=== PATIENT | female | born 1970 | race Caucasian/White ===

== ENCOUNTER 2018-05-10 05:33 | Day surgery (SDC) | payer OTHER ==
--- NOTE | 2018-05-09 07:57 | P.HPOB ---
History of Present Illness H&P Date: 05/09/18 Chief Complaint: Menorrhagia This patient is a pleasant 48 yr female with persistent menorrhagia. She was referred to me by Dr. Kang due worsening menorrhagia and secondary anemia. She has episodes of bleeding sometimes >10 days and has required iron for the resultant anemia. Pelvic ultrasound was normal. She is requesting endometrial ablation for treatment. Review of Systems Genitourinary: Reports as per HPI, Reports menorrhagia Menstruation: Reports as per HPI Past Medical History Past Medical History: Asthma, GERD/Reflux Additional Past Medical History / Comment(s): HEAVY PERIODS, ANEMIA History of Any Multi-Drug Resistant Organisms: None Reported Past Surgical History: Section Additional Past Surgical History / Comment(s): WISDOM TEETH Past Anesthesia/Blood Transfusion Reactions: No Reported Reaction Past Psychological History: No Psychological Hx Reported Smoking Status: Current every day smoker Past Alcohol Use History: None Reported Past Drug Use History: None Reported - Past Family History Father Family Medical History: Deep Vein Thrombosis (DVT) Medications and Allergies Home Medications Medication Instructions Recorded Confirmed Type Albuterol Sulfate [Proair Hfa] 1 - 2 puff INHALATION Q6HR PRN 05/04/18 05/04/18 History Ferrous Sulfate [Iron] 325 mg PO DAILY 05/04/18 05/04/18 History Montelukast [Singulair] 10 mg PO DAILY 05/04/18 05/04/18 History Allergies Allergy/AdvReac Type Severity Reaction Status Date / Time Sulfa (Sulfonamide Allergy Nausea/DIZZ Verified 05/04/18 11:11 Antibiotics) Y/CHILLS Exam - OBG Physical Exam Abdomen: bowel sounds normal, no diffuse tenderness, no bruit present, no guarding noted, no hepatomegaly, no splenomegaly, no mass Vulva: both: normal Vagina: normal moisture, no discharge Cervix: no lesion, no discharge Uterus: normal size, normal contour Adnexa: both: normal Results Transvaginal ultrasound on April 16 shows a normal retroverted uterus and ovaries. Assessment and Plan Assessment: This is a pleasant 48 yr old female with persistent menorrhagia requesting endometrial ablation for treatment. Plan is hysteroscopy, D&C and Novasure endometrial ablation. We have discussed this surgery and risks: infection, bleeding, possible uterine perforation and /or thermal injury. All of the patients questions were answered and a written consent obtained. (1) Menorrhagia Status: Chronic Code(s): N92.0 - EXCESSIVE AND FREQUENT MENSTRUATION WITH REGULAR CYCLE SNOMED Code(s): 599429569
[~2018-05-10 05:33] MED LIST: Pre Op ABX Message 1 EACH MISC MISCELLANE ONE
[2018-05-10] MEDS ORDERED: MIDAZOLAM 2 MG/2 ML VIAL IV PRN (05:36)
[2018-05-10] MEDS ORDERED: DEXAMETHASONE SOD PHOSPHATE 10 MG/ML 1 ML VIAL IV ONE (05:36)
[2018-05-10] MEDS ORDERED: fentaNYL (PF) 50 MCG/ML 2 ML AMP IV PRN (05:36)
[2018-05-10] MEDS ORDERED: ONDANSETRON 4 MG/2 ML VIAL IVP ONE (05:36)
[2018-05-10] MEDS ORDERED: SCOPOLAMINE 1.5MG/72HR PATCH TRANSDERM ONE (05:36)
[2018-05-10 06:21] VITALS: RESP 16
[2018-05-10] MEDS: LACTATED RINGERS 1,000 ML IV SCH ×2 (06:28→08:30)
[2018-05-10] MEDS ORDERED: LIDOCAINE 1% 20 ML VIAL (10MG/ML) FOR IV START INTRADERMA ONE (06:28)
[2018-05-10] MEDS ORDERED: PROPOFOL 10 MG/ML 20 ML VIAL IV ONE (07:26)
[2018-05-10] MEDS ORDERED: LIDOCAINE 1% INJ 10MG/ML (20 ML MDV) ONE (07:26)
[2018-05-10] MEDS ORDERED: MIDAZOLAM 2 MG/2 ML VIAL ONE (07:26)
[2018-05-10] MEDS ORDERED: SUCCINYLCHOLINE CHLORIDE 100 MG/5 ML SYR IV ONE (07:26)
[2018-05-10] MEDS ORDERED: KETOROLAC 30 MG/ML 1 ML VIAL ONE (07:26)
[2018-05-10] MEDS ORDERED: fentaNYL (PF) 50 MCG/ML 2 ML AMP ONE (07:26)
--- NOTE | 2018-05-10 08:04 | P.OP ---
Date of Procedure: 05/10/18 Preoperative Diagnosis: Menorrhagia Postoperative Diagnosis: Same Procedure(s) Performed: #1: Hysteroscopy. #2: Dilation and curettage. #3: NovaSure endometrial ablation. Anesthesia: BRENTONA Surgeon: Emigdio Marcelo Estimated Blood Loss (ml): 5 Urine output (ml): 75 Pathology: other (Uterine curettings) Condition: stable Disposition: PACU Indications for Procedure: Please see dictated H&P for intimate details of this patient's admission. Brief summary this is a pleasant 48-year-old female with long-standing menorrhagia who is requesting endometrial ablation for treatment. Patient understands this surgery and risks including risks of infection, bleeding, possible uterine perforation, and/or thermal injury. All the patient's questions been answered and a written consent obtained. Operative Findings: This patient had some endometrial thickening anteriorly but otherwise normal- appearing endometrial cavity. Description of Procedure: This patient is taken to the operating room where she is laid in the supine position. She subsequently undergoes general endotracheal anesthesia without incident. With an adequate level of anesthesia she's placed in dorsal lithotomy position. She has a vaginal perineal prep and drape. Examination under anesthesia shows the uterus to be retroverted of normal size. I placed a weighted speculum posterior vagina and grabbed the anterior lip of cervix with an Allis clamp. The bladder is drained for 75 mL of clear urine. Uterus is then sounded to 8.5 cm retroverted. I dilate the cervix gently to allow the hysteroscope into the uterine cavity. Using saline solution hysteroscopy is performed and the cavity length was calculated to be 6 cm. There is some thickening anteriorly. Otherwise uterine cavity appears normal. Hysteroscope was then removed. Cervix is dilated more to allow a small curette into the uterine cavity. I do placed the polyp forceps into the uterine cavity and small pieces of tissue removed. At that point a gentle but thorough 4 quadrant curettage is done for adequate sampling. This done the NovaSure device is then opened. Appears to be intact. It is set at a length of 6.0 cm and seated in place and opens to a width of 4.5 cm. It passes the cavity integrity test and then is enabled at 149 W setting for 85 seconds. NovaSure device is then removed. Hysteroscopy is then performed and the uterine cavity appears to be ablated up to the endocervix. At this point the procedure is then ended. The Allis clamp and weighted speculum removed. All counts are correct 3. There are no complications. Patient is awakened from anesthesia and taken to recovery room in satisfactory condition.
[2018-05-10 08:10] VITALS: TEMP 97.7
[2018-05-10 09:00] VITALS: BP 136/81; PULSE 68
== END 2018-05-10 09:33 | disposition home or self-care (01) ==
LOC: OR 05:33
PROVIDERS: ATTEND Obstetrics & Gynecology
DX: N84.0 Polyp of corpus uteri (principal); J44.9 Chronic obstructive pulmonary disease, unspecified; K21.9 Gastro-esophageal reflux disease without esophagitis; D64.9 Anemia, unspecified; F17.200 Nicotine dependence, unspecified, uncomplicated; Z79.899 Other long term (current) drug therapy; Z79.1 Long term (current) use of non-steroidal anti-inflammatories (NSAID); Z88.2 Allergy status to sulfonamides
CPT/HCPCS: 81025; 88305; 58563; J2250; J1100; J2405; J2001; J3010; J1885; J0330; J2704

== ENCOUNTER → 2018-05-17 | Outpatient (CLI) | payer OTHER ==
--- NOTE | 2018-05-17 14:54 | MM ---
Reason for exam: screening (asymptomatic). History: Family history of breast cancer in maternal grandmother at age 70 and breast cancer in maternal aunt at age 60. Took hormonal contraceptives for 10 years. Physical Findings: A clinical breast exam by your physician is recommended on an annual basis and results should be correlated with mammographic findings. MG Screening Mammo w CAD Bilateral CC and MLO view(s) were taken. No prior studies available for comparison. The breast tissue is heterogeneously dense. This may lower the sensitivity of mammography. Finding: There is a 5 mm circumscribed mass in the inner quadrant, middle position of the left breast. ASSESSMENT: Incomplete: need additional imaging evaluation, BI-RAD 0 RECOMMENDATION: Special view mammogram and ultrasound of the left breast. [facility] will attempt to contact patient to return for supplemental views and ultrasound.
== END | disposition home or self-care (01) ==
LOC: RADMAMWWP 07:43
PROVIDERS: ATTEND Obstetrics & Gynecology
DX: Z12.31 Encounter for screening mammogram for malignant neoplasm of breast (principal)
CPT/HCPCS: 77067

== ENCOUNTER → 2018-05-31 | Outpatient (CLI) | payer OTHER ==
--- NOTE | 2018-05-31 12:30 | MM ---
Reason for exam: additional evaluation requested from abnormal screening. Last mammogram was performed less than 1 month ago. History: Family history of breast cancer in maternal grandmother at age 70 and breast cancer in maternal aunt at age 60. Took hormonal contraceptives for 10 years. Physical Findings: A clinical breast exam by your physician is recommended on an annual basis and results should be correlated with mammographic findings. MG Work Up Mamm w CAD LT Spot compression CC, spot compression MLO, and ML view(s) were taken of the left breast. Prior study comparison: May 17, 2018, bilateral MG screening mammo w CAD. The breast tissue is heterogeneously dense. This may lower the sensitivity of mammography. Two areas of nodularity became less defined, centrally and laterally. 6 month follow up recommended. These results were verbally communicated with the patient and result sheet given to the patient on 05/31/18. ASSESSMENT: Probably benign, BI-RAD 3 RECOMMENDATION: Follow-up diagnostic mammogram of the left breast in 6 months.
== END | disposition home or self-care (01) ==
LOC: RADMAMWWP 08:42
PROVIDERS: ATTEND Obstetrics & Gynecology
DX: R92.8 Other abnormal and inconclusive findings on diagnostic imaging of breast (principal)
CPT/HCPCS: 77065

== ENCOUNTER → 2020-04-02 | Outpatient (CLI) | payer OTHER ==
--- NOTE | 2020-04-03 15:03 | MM ---
Reason for exam: screening (asymptomatic). Last mammogram was performed 1 year and 10 months ago. History: Family history of breast cancer in maternal grandmother at age 70 and breast cancer in maternal aunt at age 60. Took hormonal contraceptives for 10 years. Physical Findings: A clinical breast exam by your physician is recommended on an annual basis and results should be correlated with mammographic findings. MG Screening Mammo w CAD Bilateral CC and MLO view(s) were taken. Prior study comparison: May 31, 2018, left breast MG work up mamm w CAD LT. May 17, 2018, bilateral MG screening mammo w CAD. There are scattered fibroglandular densities. There is chronic nodularity in the left breast. No significant changes when compared with prior studies. ASSESSMENT: Benign, BI-RAD 2 RECOMMENDATION: Routine screening mammogram of both breasts in 1 year.
== END | disposition home or self-care (01) ==
LOC: RADMAMWWP 07:48
PROVIDERS: ATTEND Family Medicine
DX: Z12.31 Encounter for screening mammogram for malignant neoplasm of breast (principal)
CPT/HCPCS: 77067

== ENCOUNTER → 2025-03-27 | Outpatient (CLI) | payer OTHER ==
--- NOTE | 2025-03-27 23:46 | US ---
EXAMINATION TYPE: US arterial LE multi level DATE OF EXAM: 03/27/2025 10:51 AM COMPARISONS: None. CLINICAL INDICATION: Female, 55 years old with history of I73.9 PERIPHERAL VASCULAR DISEASE, UNSPECIF IED; Left calf pain. TECHNIQUE: Systolic pressures were taken of the upper and lower extremity arteries with ankle-brachia l indices and toe brachial indices calculated bilaterally. History of: Smoker: Current Smoker Hypertension: Yes Diabetic: No Hyperlipidemia: NA TIA/CVA: No Previous Vascular Surgery: No CAD: No [place]: No Vascular Ulcers: No Claudication: No Gangrene: No FINDINGS: Doppler Waveforms: Right: Left: Pressure Gradients: Brachial Artery systolic pressure: Right: 141 Left: 139 Posterior Tibial artery systolic pressure: Right: 155 Left: 100 Dorsalis Pedis artery systolic pressure: Right: 166 Left: 94 Ankle-Brachial Indices: Right: 1.2 Left: 0.7 IMPRESSION: 1. Mild narrowing of left lower extremity mid and distal arterial structures. CTA runoff can be perfo rmed as clinically indicated [facility], , 03/27/2025 11:44 PM
== END | disposition home or self-care (01) ==
LOC: RADUSWWP 10:01
PROVIDERS: ATTEND Family Medicine
DX: I73.9 Peripheral vascular disease, unspecified (principal)
CPT/HCPCS: 93923